=== PATIENT | male | born 1950 | race Hispanic/Latino ===

== ENCOUNTER 2017-12-17 06:36 | Day surgery (SDC) | payer BC ==
[2017-12-11 12:03] VITALS: BMI 28.4
[2017-12-17 07:11] LABS: BASO # 0.07 K/mm3 (0.0-2.0); BASO % 0.9 % (0.0-3.0); EOS # 0.5 (0.0-0.7); EOS % 6.2 % (1.5-5.0); GRAN # 3.82 (1.4-6.5); GRAN % 51.6 % (50.0-68.0); LYMPH # 2.3 (1.2-3.4); LYMPH % 31.4 % (22.0-35.0); MEAN CELL VOLUME 94.3 fl (80.0-105.0); MEAN CORPUSCULAR HEMOGLOBIN 32.3 pg (25.0-35.0); MEAN CORPUSCULAR HGB CONC 34.3 g/dl (31.0-37.0); MEAN PLATELET VOLUME 9.5 fl (7.0-11.0); MONO # 0.7 (0.1-0.6); MONO % 9.9 % (1.0-6.0); RBC 3.71 10^6/uL (3.5-6.1); RED CELL DISTRIBUTION WIDTH 12.8 % (11.5-14.5); WHITE BLOOD COUNT 7.4 10^3/ul (4.5-11.0)
[2017-12-17 07:17] LABS: INR 1.01; PROTHROMBIN TIME 11.6 SECONDS (9.4-12.5)
[2017-12-17 07:20] LABS: PARTIAL THROMBOPLASTIN TIME 26.4 Seconds (25.1-36.5)
[2017-12-17 07:24] LABS: BLOOD UREA NITROGEN 21 mg/dL (7-21); GFR AFRICAN-AMERICAN > 60; GFR NON-AFRICAN AMERICAN > 60; HDL CHOLESTEROL 58 mg/dL (29-60)
[2017-12-17 07:34] LABS: LDL CHOLESTEROL 85 mg/dL (0-129)
[2017-12-17] MEDS ORDERED: Iodixanol 320 MG/ML 200 ML BOTTLE IV ONE ×2 (08:48)
[2017-12-17] MEDS ORDERED: Midazolam 2 MG/2 ML VIAL ONE ×3 (09:23→09:52)
[2017-12-17] MEDS ORDERED: Nitroglycerin 50mg in D5W 50 MG/250 ML BOTTLE IV ONE (10:09)
[2017-12-17] MEDS ORDERED: Iodixanol 320 MG/ML 100 ML BOTTLE IV ONE (10:09)
[2017-12-17] MEDS ORDERED: Sodium Chloride 0.9% 1,000 ML IV SCH (10:30)
[2017-12-17 12:12] VITALS: RESP 18
[2017-12-17 12:43] VITALS: TEMP 98
--- NOTE | 2017-12-17 12:49 | CARDCATH ---
Copied To: Diego Machado MD Attending MD: Diego Machado MD PROCEDURE DATE: 12/17/2017 HISTORY: The patient is a 67-year-old male who presents to my office with documented history of coronary disease, but is limited by severe and progressive claudication in the left lower extremity. He had surgical evaluation down in [facility] in which the surgeon was planning to do surgery. The patient needed cardiac clearance as well as the patient looking for alternatives to surgery. Because of his documented coronary disease and documented peripheral vascular disease, a cardiac catheterization was recommended. PROCEDURE: Left heart catheterization with coronary arteriography and left ventriculogram. The right femoral artery was cannulated with 6-Greek sheath. There were no complications. I performed moderate sedation which included the presence of an independent trained observer that assisted in monitoring the patient's level of consciousness and physiologic status. After administration of Versed and fentanyl, my intra service time was 15 minutes. The findings on catheterization revealed a left ventricle that contracted normally. Estimated ejection fraction is 50-55%. His coronary anatomy revealed a right dominant circulation. The RCA revealed diffuse atherosclerosis and heavily calcified. The previous PTCA site revealed a 20-30% nonobstructive lesion with diffuse atherosclerosis throughout its tree. The left main artery revealed intimal irregularities without critical lesions. The circumflex artery and obtuse marginal branch revealed diffuse calcification and atherosclerosis. There was a patent stent in the proximal portion. The LAD and diagonal vessels revealed diffuse atherosclerosis throughout its tree with heavy calcification. There was a small and diffusely diseased diagonal vessel that revealed an 80% stenoses in its midportion. The entire diagonal vessel was diffusely diseased and calcified. Manual compression was used to close the femoral artery site. In summary, the procedure revealed a patent stent in the proximal circumflex artery. Patent PTCA site of the RCA. A diffusely diseased [id number] size diagonal vessel with 80% stenoses in its midportion with the rest of the vessel diffusely diseased. Preserved LV function with an EF of 50-55%. Given these findings, the patient's cardiac status is stable. His diagonal vessel should not be treated with the stent given the diffuse disease in the entire diagonal vessel. Given the patency of the stent which was placed 2-1/2 years ago, the patient can stop his Effient. Given these findings, the patient will be evaluated for his peripheral vascular disease by Dr. Lopez with a possible angiogram of the lower extremities. There are no cardiac contraindications to peripheral vascular surgery of the lower extremities if necessary. Diego Machado MD
--- NOTE | 2017-12-17 15:15 | CARD ---
APPROVED REPORT Date of service: 12/17/2017 EKG Measurement Heart [id number] ID [id number] <Conclusion> Normal sinus rhythm Normal ECG
--- NOTE | 2017-12-17 15:23 | VASCULAR ---
PROCEDURE: Abdominal aortogram and bilateral lower extremity runoff with left selective views. HISTORY: Peripheral vascular disease with progressive bilateral claudication. Diabetes. PHYSICIAN(S): Diego Lopez MD. TECHNIQUE: A sheath remains from the patient's previous cardiac catheterization. Conscious sedation monitoring were provided throughout the procedure by a nurse. Through the sheath a 5 Malay flush catheter was placed the abdominal aorta at the level of the renal arteries. A PA DSA abdominal pelvic arteriogram was performed. The catheter was pulled out of the bifurcation and bilateral oblique DSA pelvic arteriograms performed. Overlapping bilateral lower extremity DSA arteriograms were obtained from the inguinal ligament through trifurcation. The multiple catheter was advanced over the bifurcation placed at the left common femoral artery occlusion. Magnification images of the left groin were performed. The calcified occlusion was probed with both ends of a Glidewire. It could not be easily crossed. The catheter and sheath were removed hemostasis obtained with manual compression. The patient tolerated the procedure well. FINDINGS: The abdominal aorta is degraded by respiratory motion diffuse vascular calcification is seen. There are single renal arteries bilaterally. There appears to be 70 percent smooth stenosis of the proximal left renal artery. The right renal artery appears patent. The aortic bifurcation is patent. There is a 70 percent smooth stenosis of the left common iliac artery. The right common iliac artery is patent. The external iliac arteries are patent bilateral There is calcified severe bilateral common femoral artery disease, greater on the left than the right. On the left, the left common femoral artery is occluded. There is reconstitution of the left common femoral artery bifurcation. On the right, there is polypoid calcified severe disease of the right common femoral artery bifurcation. The superficial arteries are calcified bilaterally. Moderate polypoid disease is seen in the distal superficial femoral arteries bilaterally. The popliteal arteries are patent and continuous. The trifurcations are intact IMPRESSION: 1. Calcified left common femoral artery occlusion. This could not be crossed with a guidewire in an antegrade direction 2. Severe polypoid calcified disease of the right common femoral artery bifurcation. 3. 70 percent smooth stenosis of the left common iliac artery 4. Moderate calcified polypoid occlusive disease of the distal superficial femoral arteries bilaterally P
[2017-12-17 15:40] VITALS: PULSE 64
[2017-12-17 15:41] VITALS: BP 156/76; O2SAT 98
== END 2017-12-17 16:35 | disposition home or self-care (01) ==
LOC: CATH 06:36
PROVIDERS: ATTEND Internal Medicine Cardiovascular Disease
DX: I70.202 Unspecified atherosclerosis of native arteries of extremities, left leg (principal); I25.10 Atherosclerotic heart disease of native coronary artery without angina pectoris; E11.51 Type 2 diabetes mellitus with diabetic peripheral angiopathy without gangrene; E78.00 Pure hypercholesterolemia, unspecified; I51.9 Heart disease, unspecified; I25.2 Old myocardial infarction; R23.9 Unspecified skin changes; Z95.5 Presence of coronary angioplasty implant and graft; E66.01 Morbid (severe) obesity due to excess calories; Z68.28 Body mass index [BMI] 28.0-28.9, adult
CPT/HCPCS: 36246; 36415; 75625; 75716; 80048; 80061; 85025; 85610; 85730; 86850; 86900; 93005; 93458; 99152; 99153; C1769 ×3; C1887; C2629; J1644; J2250; J3010; J7030; Q9966